=== PATIENT | female | born 1995 | race Caucasian/White ===

== ENCOUNTER 2020-09-11 19:33 | Emergency (ER) | payer OTHER ==
[2020-09-11 19:54] VITALS: BP 122/75; PULSE 98; RESP 20; TEMP 98.5
--- NOTE | 2020-09-11 20:09 | ED ---
Recheck HPI - General Chief Complaint: Recheck/Abnormal Lab/Rx Stated Complaint: needs covid test Time Seen by Provider: 09/11/20 19:43 Source: patient, family Mode of arrival: ambulatory Limitations: no limitations - History of Present Illness Initial Comments: 25-year-old female patient presents to the emergency department today requesting testing for COVID-19. Family member is dying and she requires a PCR test to travel into [place]. She denies any current physical symptoms or concerns. States she feels well. - Related Data Allergies Allergy/AdvReac Type Severity Reaction Status Date / Time No Known Allergies Allergy Verified 09/11/20 19:54 Review of Systems ROS Statement: Those systems with pertinent positive or pertinent negative responses have been documented in the HPI. ROS Other: All systems not noted in ROS Statement are negative. Past Medical History Additional Past Medical History / Comment(s): bipolar History of Any Multi-Drug Resistant Organisms: None Reported Past Surgical History: Cholecystectomy, Tonsillectomy Past Psychological History: Anxiety, Bipolar, Depression Smoking Status: Vaper Past Alcohol Use History: Occasional Past Drug Use History: None Reported General Exam Limitations: no limitations General appearance: alert, in no apparent distress Respiratory exam: Present: normal lung sounds bilaterally. Absent: respiratory distress, wheezes, rales, rhonchi, stridor Cardiovascular Exam: Present: regular rate, normal rhythm, normal heart sounds. Absent: systolic murmur, diastolic murmur, rubs, gallop, clicks Neurological exam: Present: alert, oriented X3, CN II-XII intact Psychiatric exam: Present: normal affect, normal mood Skin exam: Present: warm, dry, intact, normal color. Absent: rash Course Vital Signs 09/11/20 19:51 Temperature 98.5 F Pulse Rate 98 Respiratory 20 Rate Blood Pressure 122/75 O2 Sat by Pulse 97 Oximetry Medical Decision Making - Medical Decision Making 25 year-old female patient presents for evaluation requesting COVID-19 test. No symptoms today. She tested negative. She'll be discharged instructed to follow- up with her primary care physician as needed. Case discussed my attending Dr. Winn. - Lab Data Lab Results 09/11/20 Range/Units 20:10 Coronavirus (PCR) Not Detected (Not Detectd) Disposition Clinical Impression: Encounter for laboratory testing for COVID-19 virus Disposition: HOME SELF-CARE Condition: Good Instructions (If sedation given, give patient instructions): Coronavirus Disease 2019 (COVID-19) Is patient prescribed a controlled substance at d/c from ED?: No Referrals: Nonstaff,Physician [Primary Care Provider] - 1-2 days
== END 2020-09-11 20:51 | disposition home or self-care (01) ==
LOC: EC 19:33
DX: Z20.822 Contact with and (suspected) exposure to COVID-19 (principal); Z90.49 Acquired absence of other specified parts of digestive tract; Z90.09 Acquired absence of other part of head and neck; F32.9 Major depressive disorder, single episode, unspecified
CPT/HCPCS: 87635; 99282